=== PATIENT | female | born 1995 | race African-American/Black ===

== ENCOUNTER 2017-10-17 16:08 | Emergency (ER) | payer BC, OTHER ==
--- NOTE | 2017-10-17 16:20 | PDOC ---
Rapid Medical Evaluation Time Seen by Provider: 10/17/17 16:17 Medical Evaluation: Allergies Allergy/AdvReac Type Severity Reaction Status Date / Time No Known Allergies Allergy Verified 10/17/17 16:18 10/17/17 16:18 I have performed a brief in-person evaluation of the patient. The patient presents with a chief complaint of : left ankle pain today after being accidentally hit by a nightstand that fell on it. Reports pain with weight bearing Pertinent physical exam findings. NAD left ankle + swelling unlabored breathing I have ordered the following urine preg, left ankle xray This patient will proceed to the ED for further evaluation.
[2017-10-17 16:21] VITALS: BP 123/70; PULSE 86; TEMP 98.3; BMI 36.3
--- NOTE | 2017-10-17 16:34 | PDOC ---
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 Patient states there was a table underneath a desk which fell down and striking her in the sotelo immediately above the ankle. Patient is ambulatory since the incident. She denies numbness or tingling. Past History - Past Medical History Allergies/Adverse Reactions: Allergies Allergy/AdvReac Type Severity Reaction Status Date / Time No Known Allergies Allergy Verified 10/17/17 16:18 Home Medications: Ambulatory Orders NK [No Known Home Medication] 10/17/17 Asthma: Yes - Immunization History Immunization Up to Date: Yes - Suicide/Smoking/Psychosocial Hx Smoking Status: No Smoking History: Never smoked Number of Cigarettes Smoked Daily: 0 Hx Alcohol Use: No Drug/Substance Use Hx: No Substance Use Type: None Review of Systems - Review of Systems Able to Perform ROS?: Yes Is the patient limited Telugu proficient: No Constitutional: No: Symptoms Reported HEENTM: No: Symptoms Reported Respiratory: No: Symptoms reported Cardiac (ROS): No: Symptoms Reported ABD/GI: No: Symptoms Reported : No: Symptoms Reported Musculoskeletal: Yes: See HPI Integumentary: No: Symptoms Reported Neurological: No: Symptoms reported Endocrine: No: Symptoms Reported Hematologic/Lymphatic: No: Symptoms Reported *Physical Exam - Vital Signs Last Vital Signs Temp Pulse Resp BP Pulse Ox 98.3 F 86 20 123/70 99 10/17/17 16:18 10/17/17 16:18 10/17/17 16:18 10/17/17 16:18 10/17/17 16:18 - Physical Exam General Appearance: Yes: Appropriately Dressed. No: Apparent Distress Vascular Pulses: Dorsalis-Pedis (R): 2+, Doralis-Pedis (L): 2+ Musculoskeletal: positive: Normal Inspection Extremity: positive: Normal Capillary Refill, Normal Inspection, Normal Range of Motion. negative: Tender, Swelling, Erythema Integumentary: positive: Normal Color, Dry, Warm Neurologic: positive: Motor Strength 5/5 Medical Decision Making - Medical Decision Making 10/17/17 16:46 A/P: 22-year-old woman with left lower lower extremity pain status post direct blow Full flexion and dorsiflexion of the foot against resistance without difficulty No tenderness to palpation over base of the fifth metatarsal, navicular, lateral or medial malleolus. 2+ DP pulses No erythema or swelling present No pain to palpation over knee joint, ankle joint or bones of the foot. Given exam low likelihood of fracture I will defer imaging at this time. Scottie wrap, [id number] pain control, discharge with orthopedic follow-up *DC/Admit/Observation/Transfer Diagnosis at time of Disposition: Contusion of ankle, left Qualifiers: Encounter type: initial encounter Qualified Code(s): S90.02XA - Contusion of left ankle, initial encounter - Discharge Dispostion Disposition: HOME Condition at time of disposition: Stable Decision to Admit order: No - Referrals Referrals: Saurabh Dominguez MD [Primary Care Provider] - Ramírez Denis MD [Staff Physician] - - Patient Instructions Additional Instructions: Take Tylenol or Motrin as needed for pain. Follow manufacturers instructions for appropriate dosage. Try not to walk or bear weight on your left ankle as much as possible for the next 3 days. Apply ice for 20 minutes and removed for at least 20 minutes before reapplying the ice. Keep Scottie wrap on your ankle as much as possible to help decrease some of the swelling control pain. Whenever possible keep her foot elevated to decrease swelling to your ankle. You've been given the number for an orthopedist. If symptoms do not resolve within the next 7 days call the orthopedist for further evaluation. Return to emergency department for discoloration of the foot, numbness or tingling to the foot, worsening pain, or any other concerns. Thank you very much for choosing us to provide your emergent healthcare needs. - Post Discharge Activity
== END 2017-10-17 16:44 | disposition home or self-care (01) ==
LOC: JERFT 16:08
DX: S90.02XA Contusion of left ankle, initial encounter (principal); W20.8XXA Other cause of strike by thrown, projected or falling object, initial encounter; Y93.E9 Activity, other interior property and clothing maintenance; Y92.9 Unspecified place or not applicable; Y99.0 Civilian activity done for income or pay
CPT/HCPCS: 99281-25